=== PATIENT | female | born 1975 | race Caucasian/White ===

== ENCOUNTER → 2016-12-14 | Outpatient (CLI) | payer MEDICARE, OTHER ==
[2016-12-14 15:26] LABS: BUN/CREATININE RATIO 25 (0-10)
== END ==
LOC: LAB 14:13
PROVIDERS: Emergency Medicine
DX: Z20.6 Contact with and (suspected) exposure to human immunodeficiency virus [HIV] (principal); E11.9 Type 2 diabetes mellitus without complications; E88.81 Metabolic syndrome and other insulin resistance; E78.9 Disorder of lipoprotein metabolism, unspecified; E53.8 Deficiency of other specified B group vitamins
CPT/HCPCS: 36415; 80053; 80061; 80074; 82248; 82607; 83036; 86780; 87390

== ENCOUNTER 2020-10-05 18:51 | Emergency (ER) | payer MEDICARE, OTHER ==
[2020-10-05] MEDS ORDERED: PROVENTIL HFA6.7 GM INH (21:19)
[2021-02-07] MEDS ORDERED: HYDROCODON-ACE1 EAC6 PO (08:37)
[2021-02-07] MEDS ORDERED: QUETIAPINE FUMA25 MG PO (08:37)
[2021-02-07] MEDS ORDERED: TENORMIN25 MG PO (08:37)
[2021-02-07] MEDS ORDERED: ATORVASTATIN CA10 MG PO (08:37)
[2021-02-07] MEDS ORDERED: VALACYCLOVIR500 MG PO (08:38)
[2021-02-07] MEDS ORDERED: GLUMETZA500 MG PO (08:38)
== END 2020-10-05 21:22 | disposition home or self-care (01) ==
LOC: ER1 18:51
DX: J40 Bronchitis, not specified as acute or chronic (principal); H92.01 Otalgia, right ear; I10 Essential (primary) hypertension; Z88.5 Allergy status to narcotic agent; Z79.899 Other long term (current) drug therapy
CPT/HCPCS: 71046; 99283

== ENCOUNTER → 2020-10-23 | Outpatient (CLI) | payer MEDICARE, OTHER ==
[~2020-10-23] MED LIST: ATORVASTATIN CA10 MG PO; GLUMETZA500 MG PO; HYDROCODON-ACE1 EAC6 PO; PROVENTIL HFA6.7 GM INH; QUETIAPINE FUMA25 MG PO; TENORMIN25 MG PO; VALACYCLOVIR500 MG PO
== END ==
LOC: EMI 09-25 10:45
DX: M75.101 Unspecified rotator cuff tear or rupture of right shoulder, not specified as traumatic (principal); R93.7 Abnormal findings on diagnostic imaging of other parts of musculoskeletal system; M19.011 Primary osteoarthritis, right shoulder
CPT/HCPCS: 73221

== ENCOUNTER → 2021-01-22 | Outpatient (CLI) | payer MEDICARE, OTHER ==
[2021-01-22 14:40] LABS: HEMOGLOBIN 13.5 gm/dl (12.3-15.3); RED BLOOD COUNT 4.48 M/UL (4.00-5.10)
[2021-01-22 15:05] LABS: BUN/CREATININE RATIO 25 (0-10)
== END ==
LOC: OPSV2 12:00
PROVIDERS: Orthopaedic Surgery
DX: Z01.818 Encounter for other preprocedural examination (principal); E78.5 Hyperlipidemia, unspecified; M75.21 Bicipital tendinitis, right shoulder
CPT/HCPCS: 36415; 71046; 80053; 80061; 85027; 93005

== ENCOUNTER → 2021-02-07 | Day surgery (SDC) | payer MEDICARE, OTHER ==
[~2021-02-07] VITALS: Ht 149.9 cm; Wt 77.6 kg
== END | disposition home or self-care (01) ==
LOC: OR 01-31 07:30
DX: M75.21 Bicipital tendinitis, right shoulder (principal); M67.48 Ganglion, other site; M75.111 Incomplete rotator cuff tear or rupture of right shoulder, not specified as traumatic; M75.41 Impingement syndrome of right shoulder; M75.51 Bursitis of right shoulder; M65.811 Other synovitis and tenosynovitis, right shoulder; I10 Essential (primary) hypertension; E78.5 Hyperlipidemia, unspecified; M81.0 Age-related osteoporosis without current pathological fracture; Z88.5 Allergy status to narcotic agent; Z79.891 Long term (current) use of opiate analgesic; Z79.84 Long term (current) use of oral hypoglycemic drugs; Z79.899 Other long term (current) drug therapy
CPT/HCPCS: C1713; J0171; J0690; J1100; J2001; J2250; J2405; J2550; J2704; J2710; J2795; J3010; J7120

== ENCOUNTER → 2021-05-07 | Outpatient (CLI) | payer MEDICARE, OTHER | LOC: EXRD 13:30 | DX: R22.1 Localized swelling, mass and lump, neck (principal); E04.1 Nontoxic single thyroid nodule; M85.48 Solitary bone cyst, other site | CPT/HCPCS: 76536 ==

== ENCOUNTER → 2021-06-13 | Outpatient (CLI) | payer MEDICARE, OTHER ==
[2021-06-13 15:10] LABS: HEMOGLOBIN 13.2 gm/dl (12.3-15.3); RED BLOOD COUNT 4.3 M/UL (4.00-5.10)
[2021-06-13 15:46] LABS: BUN/CREATININE RATIO 17 (0-10)
== END ==
LOC: LAB 13:55
PROVIDERS: Emergency Medicine
DX: Z01.812 Encounter for preprocedural laboratory examination (principal); E88.81 Metabolic syndrome and other insulin resistance; E28.2 Polycystic ovarian syndrome; E78.5 Hyperlipidemia, unspecified; R53.83 Other fatigue; Z79.899 Other long term (current) drug therapy; Z79.01 Long term (current) use of anticoagulants
CPT/HCPCS: 80053; 80061; 83036; 84439; 84443; 85025; 85610; 85730; U0002

== ENCOUNTER → 2021-07-03 | Outpatient (CLI) | payer MEDICARE, OTHER | LOC: MAMO 06-20 11:00 | DX: Z12.31 Encounter for screening mammogram for malignant neoplasm of breast (principal) | CPT/HCPCS: 77063; 77067 ==

== ENCOUNTER → 2021-07-24 | Outpatient (CLI) | payer MEDICARE, OTHER | LOC: EXRD 07-22 11:30 | DX: M81.0 Age-related osteoporosis without current pathological fracture (principal); M85.80 Other specified disorders of bone density and structure, unspecified site | CPT/HCPCS: 77080 ==

== ENCOUNTER → 2021-09-08 | Outpatient (CLI) | payer MEDICARE, OTHER | LOC: KOH-I 09-05 09:15 | DX: M75.111 Incomplete rotator cuff tear or rupture of right shoulder, not specified as traumatic (principal); M19.011 Primary osteoarthritis, right shoulder | CPT/HCPCS: 73221 ==

== ENCOUNTER → 2021-11-25 | Outpatient (CLI) | payer MEDICARE | LOC: EXRD 11-21 13:30 | DX: D44.0 Neoplasm of uncertain behavior of thyroid gland (principal); E04.1 Nontoxic single thyroid nodule; K11.8 Other diseases of salivary glands | CPT/HCPCS: 76536 ==

== ENCOUNTER 2021-11-30 05:07 | Emergency (ER) | payer MEDICARE, OTHER ==
[2021-11-30 07:07] LABS: HEMOGLOBIN 13.6 gm/dl (12.3-15.3); RED BLOOD COUNT 4.53 M/UL (4.00-5.10); WHITE BLOOD COUNT 12.7 K/UL (4.5-11.0)
[2021-11-30 07:31] LABS: BUN/CREATININE RATIO 25 (0-10)
[2021-11-30] MEDS ORDERED: METRONIDAZOLE500 MG PO (08:58)
[2021-11-30] MEDS ORDERED: BACTRIM 400-801 EACH PO (08:58)
[2021-11-30] MEDS ORDERED: ONDANSETRON ODT4 MG PO (08:59)
== END 2021-11-30 09:49 | disposition home or self-care (01) ==
LOC: ER1 05:07
PROVIDERS: Nurse Practitioner
DX: K52.9 Noninfective gastroenteritis and colitis, unspecified (principal); R11.2 Nausea with vomiting, unspecified; Z87.442 Personal history of urinary calculi; Z20.822 Contact with and (suspected) exposure to COVID-19; Z88.5 Allergy status to narcotic agent
CPT/HCPCS: 0240U; 71045; 80053; 81001; 82150; 82550; 82553; 83690; 84484; 85025; 93005; 96374; 96375; 99284; J1885; J2405; J2550; Q9967

== ENCOUNTER → 2021-12-24 | Outpatient (CLI) | payer MEDICARE, OTHER ==
[~2021-12-24] MED LIST changes: +BACTRIM 400-801 EACH PO; +METRONIDAZOLE500 MG PO; +ONDANSETRON ODT4 MG PO
== END ==
LOC: CT 12-17 15:30
DX: R22.1 Localized swelling, mass and lump, neck (principal)
CPT/HCPCS: 70491; Q9967

== ENCOUNTER 2022-02-10 13:47 | Emergency (ER) | payer MEDICARE, MEDICAID ==
[2022-02-10] MEDS ORDERED: NAPROSYN500 MG PO (14:48)
== END 2022-02-10 15:30 | disposition home or self-care (01) ==
LOC: ER1 13:47
DX: S32.2XXA Fracture of coccyx, initial encounter for closed fracture (principal); R41.0 Disorientation, unspecified; Z88.5 Allergy status to narcotic agent; Y04.0XXA Assault by unarmed brawl or fight, initial encounter
CPT/HCPCS: 70486; 72220; 96372; 99284; J1885

== ENCOUNTER → 2022-04-17 | Outpatient (CLI) | payer MEDICARE, OTHER ==
[~2022-04-17] MED LIST changes: +NAPROSYN500 MG PO
== END ==
LOC: KOH-I 13:00
DX: S32.009D Unspecified fracture of unspecified lumbar vertebra, subsequent encounter for fracture with routine healing (principal); Z87.81 Personal history of (healed) traumatic fracture; M51.36 Other intervertebral disc degeneration, lumbar region; M51.34 Other intervertebral disc degeneration, thoracic region; M40.204 Unspecified kyphosis, thoracic region
CPT/HCPCS: 72146; 72148